=== PATIENT | female | born 1960 | race Hispanic/Latino ===

== ENCOUNTER 2017-10-11 15:15 | Inpatient (IN) | payer BC ==
[~2017-10-11] VITALS: Ht 149.9 cm; Wt 97.0 kg
[2017-11-22 17:02] VITALS: BP 124/59
[2017-11-22 17:17] LABS: APPEARANCE,URINE Clear (CLEAR); BILIRUBIN,URINE Negative (NEGATIVE); COLOR,URINE Yellow (YELLOW); GLUCOSE, URINE (UA) Negative (NEGATIVE); KETONES,URINE Negative (NEGATIVE); LEUKOCYTE ESTERASE ,URINE Negative (NEGATIVE); NITRATE,URINE Negative (NEGATIVE); OCCULT BLOOD,URINE Negative (NEGATIVE); PROTEIN,URINE Negative (NEGATIVE)
[2017-11-22] MEDS ORDERED: VITAMIN D PO (17:46)
[2017-11-25] VITALS (20 sets, daily range): BP systolic 97–159; BP diastolic 50–86
[2017-11-25] MEDS ORDERED: SODIUM CHLORIDE 0.9% 1000ML 1,000 ML IV ONE (10:18)
[2017-11-25] MEDS ORDERED: CEFAZOLIN SODIUM 1 GM VIAL ONE (10:40)
[2017-11-25] MEDS ORDERED: TRANEXAMIC ACID 1000MG/10ML IV ONE (10:41)
[2017-11-25] MEDS: BUPIVACAINE/EPI/PF 0.25% 30ML VIAL IJ SCH ×2 (11:45→14:05)
[2017-11-25] MEDS ORDERED: CELECOXIB 200 MG CAP ONE (12:05)
[2017-11-25] MEDS ORDERED: KETOROLAC TROMETHAMINE 15MG/ML ONE (12:05)
[2017-11-25] MEDS ORDERED: ACETAMINOPHEN EXTRA STRENGTH 500 MG TABLET ONE (12:05)
[2017-11-25] MEDS ORDERED: OXYCODONE HCL 10 MG TAB.SR.12H PO ONE (12:06)
[2017-11-25] MEDS: CEFAZOLIN SODIUM 1 GM VIAL IVP SCH ×3 (12:14→18:18)
[2017-11-25] MEDS ORDERED: LIDOCAINE PF 2% 5ML ABBOJECT ONE (12:18)
[2017-11-25] MEDS ORDERED: DEXAMETHASONE SOD PHOSPHATE 10MG/ML 1ML VIAL ONE (12:18)
[2017-11-25] MEDS ORDERED: GLYCOPYRROLATE 0.2 MG/ML 5 ML VIAL ONE (12:18)
[2017-11-25] MEDS ORDERED: PROPOFOL 10 MG/ML 20ML VIAL IV ONE (12:19)
[2017-11-25] MEDS ORDERED: FENTANYL CITRATE PF 50 MCG/1 ML 2ML VIAL ONE (12:19)
[2017-11-25] MEDS ORDERED: MIDAZOLAM HCL 1 MG/ML 2ML VIAL ONE (12:19)
[2017-11-25] MEDS ORDERED: ASPI-1012 PO (12:22)
[2017-11-25] MEDS ORDERED: ERGO400T7 PO (12:22)
[2017-11-25] MEDS ORDERED: AMOX500C2 PO (12:22)
[2017-11-25] MEDS ORDERED: ROCURONIUM BROMIDE 10MG/1ML 5ML VL ONE (12:26)
[2017-11-25] MEDS ORDERED: ROPIVACAINE 0.5% 5MG/ML 30ML IJ ONE (12:28)
[2017-11-25] MEDS ORDERED: FERROUS FUMARATE 324 MG TABLET PO PRN (14:15)
[2017-11-25] MEDS ORDERED: TRAMADOL HCL 50 MG TABLET PO PRN (14:15)
[2017-11-25] MEDS ORDERED: TEMAZEPAM 15 MG CAPSULE PO PRN (14:15)
[2017-11-25] MEDS ORDERED: CALCIUM CARBONATE 500 MG TABLET PO PRN (14:15)
[2017-11-25] MEDS ORDERED: OXYCODONE HCL 5 MG TAB PO PRN (14:15)
[2017-11-25] MEDS ORDERED: ONDANSETRON HCL MDV 20ML 2 MG/ML VIAL IVP PRN (14:15)
[2017-11-25] MEDS: ACETAMINOPHEN EXTRA STRENGTH 500 MG TABLET PO SCH ×2 (14:15→20:53)
[2017-11-25] MEDS ORDERED: POTASSIUM CHLORIDE 10% ELIXIR 20 MEQ/15 ML UDCUP PO PRN (14:15)
[2017-11-25] MEDS ORDERED: POTASSIUM CHLORIDE 20MEQ/100ML 100 ML IV PRN (14:15)
[2017-11-25] MEDS ORDERED: DiphenhydrAMINE HCL 50 MG/ML VIAL IVP PRN (14:15)
[2017-11-25] MEDS ORDERED: KETOROLAC TROMETHAMINE 15MG/ML IV PRN (14:15)
[2017-11-25] MEDS ORDERED: LIDOCAINE HCL-MPF 1% 2ML VIAL IVP PRN (14:15)
[2017-11-25] MEDS ORDERED: POTASSIUM CHLORIDE 20 MEQ ERTAB PO PRN (14:15)
[2017-11-25] MEDS ORDERED: MEPERIDINE-PF 50 MG/ML SYG ONE ×2 (14:53→15:10)
[2017-11-25] MEDS: SODIUM CHLORIDE 0.9% 1000ML 1,000 ML IV SCH ×2 (17:20→23:05)
[2017-11-25 18:03] LABS: CREATINE KINASE MB 0.9 ng/mL (0.5-3.6); CREATINE KINASE, TOTAL 61 U/L (21-232); MYOGLOBIN 40 ng/mL (10-92); TROPONIN I < 0.04 ng/mL (0.00-0.06)
[2017-11-25] MEDS ORDERED: CEFAZOLIN 2GM / 50 ML 50 ML IV SCH (19:15)
[2017-11-25] MEDS: ASPIRIN 325 MG TABLET PO SCH (20:53)
[2017-11-25] MEDS: CELECOXIB 200 MG CAP PO SCH (20:53)
[2017-11-25] MEDS: PREGABALIN 25 MG CAP PO SCH (20:53)
[2017-11-25] MEDS: FAMOTIDINE 20MG TAB 20 MG TAB PO SCH (20:54)
[2017-11-26] VITALS: BP 148/80
[2017-11-26 01:47] LABS: CREATINE KINASE MB 0.9 ng/mL (0.5-3.6); CREATINE KINASE, TOTAL 68 U/L (21-232); MYOGLOBIN 49 ng/mL (10-92); TROPONIN I < 0.04 ng/mL (0.00-0.06)
[2017-11-26] MEDS: CEFAZOLIN SODIUM 1 GM VIAL IVP SCH (03:57)
[2017-11-26 05:24] LABS: HEMATOCRIT 34.5 % (36-48); MEAN CORPUSCULAR HEMOGLOBIN 31.2 pg (27.0-33.0); MEAN CORPUSCULAR HGB CONC 35.3 g/dL (32.0-36.0); MEAN CORPUSCULAR VOLUME 88.4 fL (79-99); PLATELET COUNT (AUTO) 146 K/uL (130-400); RED CELL DISTRIBUTION WIDTH 12.9 % (11.0-15.5); WHITE BLOOD COUNT (AUTO) 9.4 K/uL (4.8-10.8)
[2017-11-26 05:42] LABS: CREATININE 0.5 mg/dL (0.5-1.5); POTASSIUM 4.5 mmol/L (3.5-5.1)
[2017-11-26] MEDS: ACETAMINOPHEN EXTRA STRENGTH 500 MG TABLET PO SCH ×2 (05:51→14:16)
[2017-11-26 07:32] VITALS: BP 127/71
[2017-11-26] MEDS: CELECOXIB 200 MG CAP PO SCH (08:38)
[2017-11-26] MEDS: ASPIRIN 325 MG TABLET PO SCH (08:38)
[2017-11-26] MEDS: PREGABALIN 25 MG CAP PO SCH (08:38)
[2017-11-26] MEDS: FAMOTIDINE 20MG TAB 20 MG TAB PO SCH (08:38)
[2017-11-26] MEDS ORDERED: POLYETHYLENE GLYCOL 3350 17 GM POWD.PACK PO SCH (09:00)
[2017-11-26] MEDS: OXYCODONE HCL 5 MG TAB PO PRN ×3 (09:02→19:42)
[2017-11-26 09:46] LABS: CREATINE KINASE MB 0.8 ng/mL (0.5-3.6); CREATINE KINASE, TOTAL 82 U/L (21-232); MYOGLOBIN 40 ng/mL (10-92); TROPONIN I < 0.04 ng/mL (0.00-0.06)
[2017-11-26] MEDS: SODIUM CHLORIDE 0.9% 1000ML 1,000 ML IV SCH (10:14)
[2017-11-26 11:22] VITALS: BP 109/57
[2017-11-26 16:32] VITALS: BP 112/59
[2017-11-26] MEDS ORDERED: ASPI-1012 PO (16:56)
[2017-11-26] MEDS ORDERED: HYDR-309 PO (16:56)
[2017-11-28] MEDS ORDERED: BISACODYL 10 MG SUPP.RECT RC PRN (14:15)
== END 2017-11-26 20:45 | disposition home health service (06) | DRG 470 ==
LOC: EDSTATUS 15:15 → DAHIP 11-25 11:17 → 4AH 11-25 15:50
PROVIDERS: ADMIT Orthopaedic Surgery; ATTEND Orthopaedic Surgery
PROC: 0SRC0J9 Replacement of Right Knee Joint with Synthetic Substitute, Cemented, Open Approach (ICD-10-PCS; principal; 2017-11-25 12:22)
DX: M17.11 Unilateral primary osteoarthritis, right knee (principal); E66.01 Morbid (severe) obesity due to excess calories; Z68.41 Body mass index [BMI] 40.0-44.9, adult; E11.9 Type 2 diabetes mellitus without complications; Z83.3 Family history of diabetes mellitus; Z82.49 Family history of ischemic heart disease and other diseases of the circulatory system
CPT/HCPCS: 36415; 80048; 81003; 82550; 82553; 82948; 83874; 84484; 85027; 88305; 88311; 96374; A4218; J0690; J1100; J1885; J2001; J2175; J2250; J2704; J2795; J3010; J3490; J7030

== ENCOUNTER → 2024-08-29 | Outpatient (CLI) | payer MEDICARE ==
[~2024-08-29] MED LIST: ASPI-1012 PO; ERGO400T7 PO; HYDR-4457 PO
== END | disposition home or self-care (01) ==
LOC: SHCH 10:10
PROVIDERS: ATTEND Student in an Organized Health Care Education/Training Program
DX: I87.2 Venous insufficiency (chronic) (peripheral) (principal); I73.9 Peripheral vascular disease, unspecified; R60.9 Edema, unspecified
CPT/HCPCS: 93925; 93970

== ENCOUNTER → 2024-09-05 | Outpatient (CLI) | payer MEDICARE ==
--- NOTE | 2024-09-09 09:24 | HMCSR ---
APPROVED REPORT EXAM: Two-dimensional and M-mode echocardiogram with Doppler and color Doppler. INDICATION ICD: R07.9 Chest pain 2D Dimensions RVDd3.2 cmLVEF(%)61.9 (>50%)LVED Vol(simp.)86.0 mL IVSd0.9 (0.7-1.1cm)FS(%)33 %LVES Vol(simp.)35.0 mL LVDd5.0 (3.8-5.6cm)Ao Root(2D)2.6 (2.0-3.7cm)LVEF(%, simp.)59 % PWd1.0 (0.7-1.1cm)LVOT diam1.9 (1.8-2.4cm)LA ESV INDEX (BP)30.65 mL/m2 LVDs3.3 (2.5-4.0cm)IVC diam1.2 cm Aortic Valve AoV Vmax1.4 m/Natasha Peak GR7.9 mmHgLVOT Vmax1.1 m/s AoV VTI0.4 mAo Mean GR4.2 mmHgLVOT VTI0.27 m GARETH (VMAX)2.1 cm2AVA (VTI) 2.1 cm2 Mitral Valve MV E Vmax90.8 cm/sDECEL Rsii734 ms MV A Vmax90.8 cm/sP 1/2 T68 ms E/A ratio1.0MVA (PHT)3.2 cm2 TDI E/E' [id number]/E' Iiutzbj20.2 Pulmonary Valve PV Vmax1.0 m/sPV VTI0.27 mPV Mean GR2 mmHg PV Peak GR3.8 mmHgPI End Linda. Ryan 0.9 cm/s Tricuspid Valve TR Vmax2.2 m/sRAP (EST) 3 [id number] mmHg TR Peak GR18.9 mmHg Left Ventricle Left ventricular cavity size is normal. There is normal LV segmental wall motion. There is normal lef t ventricular wall thickness. LVEF is 55-60%. Increased E/E suggestive of increased left ventricular end diastolic pressure. Right Ventricle The right ventricle is normal size. The right ventricular systolic function is normal. Atria The left atrium size is normal. The right atrium size is normal. Aortic Valve Aortic valve is trileaflet. Aortic valve leaflets are sclerotic but open well. Trace aortic regurgita tion. There is no aortic valvular stenosis. Mitral Valve Mitral valve leaflets are mildly sclerotic but open well. Mitral regurgitation is trace. There is no mitral valve stenosis. Tricuspid Valve The tricuspid valve leaflets appear normal. There is trace tricuspid regurgitation. Pulmonic Valve Pulmonic valve is not well visualized. There is trace pulmonic valvular regurgitation. Great Vessels The aortic root is normal in size. The IVC is normal in size and collapses >50% with inspiration. Pericardium No pericardial effusion. Other Information Quality : Good Conclusion Left ventricular cavity size is normal. LVEF is 55-60% with normal LV segmental wall motion. Increased E/E suggestive of increased left ventricular end diastolic pressure. The right ventricular systolic function is normal. Both atria are normal in size. No hemodynamically significant valvular abnormalities. No pericardial effusion.
== END | disposition home or self-care (01) ==
LOC: SHCH 08:44
PROVIDERS: ATTEND Student in an Organized Health Care Education/Training Program
DX: I08.0 Rheumatic disorders of both mitral and aortic valves (principal); R07.9 Chest pain, unspecified
CPT/HCPCS: 93306